=== PATIENT | female | born 1995 | race Caucasian/White ===

== ENCOUNTER 2024-03-10 19:02 | Inpatient (IN) | payer OTHER, SELFPAY ==
[2024-03-10 19:34] VITALS: BP 106/70; BMI 24.2
[2024-03-10 20:04] LABS: % Basophils 0.1 % (0-2); % Eosinophils 0.4 % (0-6); % Immature Granulocytes 1.2 % (0-0.5); % Lymphocytes 20.2 % (20.5-51.1); % Monocytes 6.6 % (1.7-9.3); % Neutrophils 71.5 % (42.2-75.2); Absolute Immature Granulocytes 0.1 10^3/uL (0-0.05); Absolute Lymphocytes 2.3 10^3/uL (1.2-3.4); Absolute Monocytes 0.7 10^3/uL (0.1-0.6); Absolute Neutrophils 8.1 10^3/uL (1.4-6.5); Hematocrit 34.9 % (37.0-47.0); Hemoglobin 12.2 g/dL (12.0-16.0); Mean Platelet Volume 10.7 fL (7.4-10.4); Nucleated Red Blood Cells % 0 %; Platelet Count 207 10^3/uL (130-400); Red Blood Cell Count 4.06 10^6/uL (4.20-5.40); White Blood Cell Count 11.3 10^3/uL (4.8-10.8)
[2024-03-10] MEDS: CYTOTEC 25 MICROGRAM VAG (20:12)
[2024-03-11] MEDS: CYTOTEC PO ×3 (04:01→12:15)
[2024-03-11] MEDS: CYTOTEC 50 MICROGRAM PO (04:08)
[2024-03-11] MEDS: LR 1000 IV ×2 (05:12→07:25)
[2024-03-11] MEDS: STADOL 1 MG IV (06:13)
[2024-03-11] MEDS: ZOFRAN 4 MG IV (07:25)
[2024-03-11] MEDS: SUBLIMAZE 100 MCG EPIDURAL (12:15)
[2024-03-11] MEDS: FENTANYL/BUPIVACAINE 100 EPIDURAL (12:16)
[2024-03-11] MEDS: PITOCIN 30 UNITS/NSS 500 ML IV (15:37)
[2024-03-11] MEDS: TYLENOL 650 MG PO (23:00)
[2024-03-12 04:43] LABS: Hematocrit 33.6 % (37.0-47.0); Hemoglobin 11.6 g/dL (12.0-16.0)
[2024-03-12] MEDS: PRENATAL PLUS 1 TABLET PO (08:08)
[2024-03-12] MEDS: SENOKOT-S 1 TABLET PO (08:08)
[2024-03-12] MEDS: FEOSOL 325 MG PO (08:08)
[2024-03-12] MEDS: TYLENOL 650 MG PO (08:17)
[2024-03-12] MEDS: RHOGAM 300 MCG IM (12:28)
[2024-03-13] MEDS: FEOSOL 325 MG PO (08:10)
[2024-03-13] MEDS: PRENATAL PLUS 1 TABLET PO (08:10)
[2024-03-13] MEDS: SENOKOT-S 1 TABLET PO (08:12)
[2024-03-14 11:53] LABS: Syphilis/T. pallidum Ab Reflex Negative (Negative)
== END 2024-03-13 12:30 | disposition home or self-care (01) | DRG 807 ==
LOC: LDRP 19:02
PROVIDERS: Obstetrics & Gynecology; ADMITTING PHYSICIAN Obstetrics & Gynecology
PROC: 3E0P7VZ Introduction of Hormone into Female Reproductive, Via Natural or Artificial Opening (ICD-10-PCS; 2024-03-10)
PROC: 0UQMXZZ Repair Vulva, External Approach (ICD-10-PCS; 2024-03-11)
PROC: 10E0XZZ Delivery of Products of Conception, External Approach (ICD-10-PCS; 2024-03-11)
PROC: 0HQ9XZZ Repair Perineum Skin, External Approach (ICD-10-PCS; 2024-03-11)
PROC: 4A1HXCZ Monitoring of Products of Conception, Cardiac Rate, External Approach (ICD-10-PCS; 2024-03-11)
PROC: 3E0234Z Introduction of Serum, Toxoid and Vaccine into Muscle, Percutaneous Approach (ICD-10-PCS; 2024-03-12)
DX: O99.892 Other specified diseases and conditions complicating childbirth (principal); Z37.0 Single live birth; O26.893 Other specified pregnancy related conditions, third trimester; O70.0 First degree perineal laceration during delivery; O99.284 Endocrine, nutritional and metabolic diseases complicating childbirth; M41.9 Scoliosis, unspecified; E53.8 Deficiency of other specified B group vitamins; Z3A.39 39 weeks gestation of pregnancy; Z67.41 Type O blood, Rh negative; Z98.1 Arthrodesis status; Z86.16 Personal history of COVID-19
CPT/HCPCS: 85014; 85018; 85025; 85461; 86780; 86850; 86900; 86901; J2790

== ENCOUNTER → 2024-11-19 13:04 | Outpatient (REF) | payer OTHER, SELFPAY | LOC: RAD 13:04 | PROVIDERS: ATTENDING PHYSICIAN Nurse Practitioner Family | DX: E04.9 Nontoxic goiter, unspecified (principal) | CPT/HCPCS: 76536 ==

== ENCOUNTER → 2024-11-26 12:24 | Outpatient (REF) | payer OTHER, SELFPAY ==
[2024-11-26 12:58] VITALS: BP 113/78; BP_SYST 89
== END ==
LOC: RADI 12:24
PROVIDERS: ATTENDING PHYSICIAN Otolaryngology; FAMILY PHYSICIAN Internal Medicine
DX: E04.1 Nontoxic single thyroid nodule (principal)
CPT/HCPCS: 10005; 88173